=== PATIENT | female | born 1980 | race Caucasian/White ===

== ENCOUNTER → 2017-01-08 | Outpatient (CLI) | payer BC ==
[~2017-01-08] MED LIST: IBU600 MG PO; LEVEMIR100 U/ML SQ; PERCOCET 325 MG1 TA2 PO; PRENATAL PO; ZANTAC 7575 MG PO
== END ==
LOC: SUN.DIA 13:45
DX: O24.419 Gestational diabetes mellitus in pregnancy, unspecified control (principal); Z3A.30 30 weeks gestation of pregnancy; Z71.3 Dietary counseling and surveillance
CPT/HCPCS: G0108

== ENCOUNTER → 2017-01-09 | Outpatient (CLI) | payer BC | LOC: SUN.DIA 08:25 | DX: O24.414 Gestational diabetes mellitus in pregnancy, insulin controlled (principal); Z3A.30 30 weeks gestation of pregnancy; Z71.3 Dietary counseling and surveillance | CPT/HCPCS: G0108 ==

== ENCOUNTER → 2017-02-01 | Outpatient (CLI) | payer BC ==
[~2017-02-01] MED LIST changes: +AMOXICILLIN 8751 TAB PO
== END ==
LOC: SUN.DIA 08:34
DX: O24.414 Gestational diabetes mellitus in pregnancy, insulin controlled (principal); Z3A.33 33 weeks gestation of pregnancy; Z71.3 Dietary counseling and surveillance
CPT/HCPCS: G0108

== ENCOUNTER 2017-03-12 02:08 | Inpatient (IN) | payer BC ==
[~2017-03-12] VITALS: Ht 165.1 cm; Wt 86.8 kg
[2017-03-12] VITALS (22 sets, daily range): BP systolic 100–127; BP diastolic 44–93; PULSE 55–81; TEMP 97.5–98.6
[2017-03-12] MEDS ORDERED: LEVEMIR100 U/ML SQ (02:51)
[2017-03-12] MEDS ORDERED: PRENATAL PO (02:51)
[2017-03-12] MEDS ORDERED: ZANTAC 7575 MG PO (02:52)
[2017-03-12 02:57] LABS: BASO % 0.2 % (0.0-2.0); EOS # 0.1 (0.0-0.7); EOS % 0.8 % (0-4.0); GRAN # 6.2 (1.4-6.5); GRAN % 57.6 % (42.2-75.2); HEMATOCRIT 40.7 % (37.0-47.0); HEMOGLOBIN 14.1 g/dl (12.5-16.0); LYMPH # 3.6 (1.2-3.4); LYMPH % 33.3 % (20.0-51.0); MEAN CELL VOLUME 90 fl (80.0-100.0); MEAN CORPUSCULAR HEMOGLOBIN 31 pg (27.0-31.0); MEAN CORPUSCULAR HGB CONC 35 g/dl (33.0-37.0); MEAN PLATELET VOLUME 10.1 fl (7.4-10.4); MONO # 0.8 (0.1-0.6); MONO % 7.1 % (1.7-9.3); PLATELET COUNT 199 K/mm3 (130-400); RED BLOOD COUNT 4.55 M/mm3 (4.10-5.30); WHITE BLOOD COUNT 10.8 K/mm3 (4.8-10.8)
[2017-03-12] MEDS ORDERED: IBU600 MG PO (08:28)
[2017-03-12] MEDS ORDERED: PERCOCET 325 MG1 TA2 PO (08:29)
[2017-03-13 04:05] VITALS: BP 111/54; PULSE 64; TEMP 97.7
[2017-03-13 06:45] VITALS: BP 105/57; PULSE 76; TEMP 98.4
[2017-03-13 07:33] LABS: BASO % 0.2 % (0.0-2.0); EOS # 0.1 (0.0-0.7); GRAN % 57.6 % (42.2-75.2); LYMPH # 3.3 (1.2-3.4); LYMPH % 31.3 % (20.0-51.0); MEAN CELL VOLUME 92 fl (80.0-100.0); MEAN CORPUSCULAR HGB CONC 34 g/dl (33.0-37.0); MEAN PLATELET VOLUME 9.8 fl (7.4-10.4); MONO # 0.9 (0.1-0.6); MONO % 8.8 % (1.7-9.3); PLATELET COUNT 184 K/mm3 (130-400); RED BLOOD COUNT 3.89 M/mm3 (4.10-5.30); REDCELL DISTRIBUTION WIDTH-CV 13.3 % (11.5-14.5); WHITE BLOOD COUNT 10.5 K/mm3 (4.8-10.8)
[2017-03-13 07:38] LABS: HEMATOCRIT 35.8 % (37.0-47.0); HEMOGLOBIN 12.1 g/dl (12.5-16.0); MEAN CORPUSCULAR HEMOGLOBIN 31 pg (27.0-31.0)
[2017-03-13 16:50] VITALS: BP 100/52; PULSE 68; TEMP 98.2
[2017-03-13 18:30] VITALS: BP 122/67; PULSE 67; TEMP 98.5
[2017-03-14 07:24] VITALS: BP 99/61; PULSE 67; TEMP 98.6
== END 2017-03-14 12:40 | disposition home or self-care (01) | DRG 765 ==
LOC: LDRO 02:08 → OB 02:10 → LDR 02:10 → OB 04:40
PROVIDERS: Obstetrics & Gynecology
PROC: 10D00Z1 Extraction of Products of Conception, Low, Open Approach (ICD-10-PCS; principal; 2017-03-12)
PROC: 0UB70ZZ Excision of Bilateral Fallopian Tubes, Open Approach (ICD-10-PCS; 2017-03-12)
DX: O34.211 Maternal care for low transverse scar from previous cesarean delivery (principal); O36.0130 Maternal care for anti-D [Rh] antibodies, third trimester, not applicable or unspecified; N85.8 Other specified noninflammatory disorders of uterus; O24.420 Gestational diabetes mellitus in childbirth, diet controlled; O99.334 Smoking (tobacco) complicating childbirth; F17.210 Nicotine dependence, cigarettes, uncomplicated; Z3A.38 38 weeks gestation of pregnancy; Z37.0 Single live birth; Z40.09 Encounter for prophylactic removal of other organ
CPT/HCPCS: J0690; J1885; J2270; J2370; J2405; J2590; J7120

== ENCOUNTER 2017-03-20 14:32 | Inpatient (IN) | payer BC ==
[~2017-03-20] VITALS: Ht 165.1 cm; Wt 82.3 kg
[~2017-03-20 14:32] MED LIST changes: -AMOXICILLIN 8751 TAB PO
[2017-03-20 15:16] LABS: HEMATOCRIT 43.2 % (37.0-47.0); HEMOGLOBIN 14.3 g/dl (12.5-16.0); MEAN CELL VOLUME 93 fl (80.0-100.0); MEAN CORPUSCULAR HEMOGLOBIN 31 pg (27.0-31.0); MEAN CORPUSCULAR HGB CONC 33 g/dl (33.0-37.0); PLATELET COUNT 344 K/mm3 (130-400); RED BLOOD COUNT 4.66 M/mm3 (4.10-5.30); REDCELL DISTRIBUTION WIDTH-CV 12.8 % (11.5-14.5)
[2017-03-20 15:18] LABS: ADD PATHOLOGY DIFF REVIEW NO; WHITE BLOOD COUNT 20.4 K/mm3 (4.8-10.8)
[2017-03-20 15:20] LABS: PH 5 (5-8); SQUAMOUS EPITHELIAL 0-2 /hpf; URINE APPEARANCE Hazy; URINE BACTERIA None Seen /hpf; URINE BILIRUBIN Negative (NEGATIVE); URINE BLOOD 3+ (NEGATIVE); URINE COLOR Yellow; URINE GLUCOSE Negative (NEGATIVE); URINE KETONE Negative (NEGATIVE); URINE UROBILINOGEN Negative (NEGATIVE)
[2017-03-20 15:30] LABS: ADJUSTED CALCIUM 9.8 mg/dL (8.4-10.2); ALBUMIN 3.7 gm/dL (3.5-5.0); BILIRUBIN,TOTAL 0.9 mg/dL (0.0-1.0); CALCIUM 9.6 mg/dL (8.4-10.2); CREATININE, serum 0.78 mg/dL (0.52-1.25); POTASSIUM 3.4 mmol/L (3.4-5.0); TOTAL PROTEIN 7.3 gm/dL (6.4-8.2)
[2017-03-20 15:34] LABS: BAND 19 % (0-10); MYELOCYTE 1 % (0-0); NEUTROPHILS 70 % (42.0-75.2); PLATELET ESTIMATE NORMAL (NORMAL); TOTAL CELLS COUNTED 100
[2017-03-20 17:00] VITALS: BP 109/70; PULSE 97; TEMP 99.9
[2017-03-20 21:45] VITALS: BP 98/57; PULSE 93; TEMP 98
[2017-03-20 23:20] VITALS: BP 116/69; PULSE 97; TEMP 97.5
[2017-03-21 05:15] VITALS: BP 121/72; PULSE 98; TEMP 98.5
[2017-03-21 07:35] VITALS: BP 108/63; PULSE 83; TEMP 97.8
[2017-03-21 15:14] VITALS: BP 97/57; PULSE 78; TEMP 98.6
[2017-03-21 19:00] VITALS: BP 104/58; PULSE 83; TEMP 98.4
[2017-03-22] VITALS: BP 100/62; PULSE 82; TEMP 98.9
[2017-03-22 06:52] VITALS: BP 100/50; PULSE 66; TEMP 98.9
[2017-03-22 09:08] LABS: BASO % 0.2 % (0.0-2.0); EOS # 0.2 (0.0-0.7); EOS % 2.3 % (0-4.0); GRAN # 6.7 (1.4-6.5); LYMPH # 1.1 (1.2-3.4); MEAN CELL VOLUME 92 fl (80.0-100.0); MEAN CORPUSCULAR HGB CONC 33 g/dl (33.0-37.0); MEAN PLATELET VOLUME 10.2 fl (7.4-10.4); MONO # 0.4 (0.1-0.6); MONO % 5.1 % (1.7-9.3); PLATELET COUNT 305 K/mm3 (130-400); RED BLOOD COUNT 3.41 M/mm3 (4.10-5.30); REDCELL DISTRIBUTION WIDTH-CV 13.2 % (11.5-14.5); WHITE BLOOD COUNT 8.4 K/mm3 (4.8-10.8)
[2017-03-22 09:21] LABS: HEMATOCRIT 31.5 % (37.0-47.0); HEMOGLOBIN 10.5 g/dl (12.5-16.0); MEAN CORPUSCULAR HEMOGLOBIN 31 pg (27.0-31.0)
[2017-03-22 12:00] VITALS: BP 99/59; PULSE 69; TEMP 98.2
[2017-03-22 16:45] VITALS: BP 114/67; PULSE 77; TEMP 99.8
[2017-03-22 20:00] VITALS: BP 122/77; PULSE 79; TEMP 99
[2017-03-23 09:06] VITALS: BP 118/70; PULSE 60; TEMP 97.6
[2017-03-23 13:00] VITALS: BP 116/68; PULSE 68; TEMP 98.4
[2017-03-23 17:00] VITALS: BP 115/65; PULSE 69; TEMP 98.5
[2017-03-23 19:10] VITALS: BP 123/74; PULSE 73; TEMP 98.9
[2017-03-24 09:30] VITALS: BP 110/72; PULSE 84; TEMP 98.9
[2017-03-24 11:00] VITALS: BP 120/64; PULSE 88; TEMP 98.7
[2017-03-24 16:30] VITALS: BP 116/68; PULSE 88; TEMP 98.5
[2017-03-24 21:30] VITALS: BP 123/72; PULSE 55; TEMP 98.5
[2017-03-25 08:45] VITALS: BP 110/62; PULSE 84; TEMP 98.6
[2017-03-25] MEDS ORDERED: AMOXICILLIN 8751 TAB PO (12:07)
== END 2017-03-25 12:40 | disposition home or self-care (01) | DRG 776 ==
LOC: COL.ER 14:32 → OB 16:19
PROVIDERS: Obstetrics & Gynecology
DX: O85 Puerperal sepsis (principal)
CPT/HCPCS: OP; G0378; J1580; J7120; Q9967